=== PATIENT | female | born 1945 | race Caucasian/White ===

== ENCOUNTER 2023-03-18 00:48 | Outpatient (CLI) | payer MEDICARE, BC, SELFPAY ==
--- NOTE | 2023-03-18 07:45 | DI.US_ITS ---
Exam(s) US NEEDLE LOCAL OTHER WO RAD EXAM: US NEEDLE LOCAL OTHER WO RAD CLINICAL HISTORY: Nodule x4,ULTRASOUND GUIDED BX, E04.2,MULTINODULAR THYROID. COMPARISON: US US THYROID/NECK/HEAD from 12/02/2022 TECHNIQUE: Ultrasound was provided for Dr. Noel for guidance with performing right thyroid nodule FNA. Please see procedure note for details. DATA REPOSITORY:
--- NOTE | 2023-03-18 11:50 | PAPNONF_PTH ---
PATIENT: Yenifer Medley LOC: DI U#:[id number] AGE/SX: 78/F ROOM: RE03/18/[address]: Joe Noel MD : [id number] BED: DIS: 03/18/2023 SPEC #: [id number] RECD: 03/18/23 12:44 STATUS: JEREL REShirin #: [id number] BOGDAN: 03/18/23 11:[address]: Joe Noel DEPT: [facility] Cytology RECD BY: Chelo Gandhi ENTERED: 03/18/23 12:45 SP TYPE: SERENA PICKERING DR: Juanita Mayers Tissues: 1 - BODY FLUID CYTO(NOT S/U/N/EM)[facility] 2 - BODY FLUID CYTO(NOT S/U/N/EM)[facility] Procedures: BODY FLUID CYTO(NOT SPU/UR/NIP/ENDOM)[facility] Comments: [id number] (PATH FNA CONSULT) (REFRIGERATED)
--- NOTE | 2023-03-18 12:06 | OPPNE_ITS ---
Date of service: 03/18/23 Time of Service: 12:06 Procedure Note Date of procedure: 03/18/23 Procedure: Ultrasound-guided FNA, right thyroid nodules x2, pathology present Surgeon/Proceduralist/Physician: Joe Noel Procedure Diagnosis: Multinodular thyroid Procedure Indications: The patient has a multinodular thyroid with previous ultrasound indicating 2 left-sided thyroid nodules measuring just over criteria for biopsy and 2 right- sided thyroid nodules which met criteria for biopsy. Options were explained to the patient regarding further management. She stopped her Plavix and aspirin as directed last Friday. She would like to proceed with FNA. Prior to performing the FNA, repeat ultrasound was performed revealing that one of the left-sided thyroid nodules was now subcentimeter and the other area of concern did not appear to be nodular but rather an area of heterogeneity within the left thyroid. We discussed FNA of this area versus waiting. After discussion she wished watchful waiting on the left and FNA of the right thyroid nodules. Consent was obtained and the below was then performed. Procedure Description: The patient was positioned in supine position and prepped and draped in appropriate fashion. Ultrasound was used to locate and localize each thyroid nodule. The skin overlying the thyroid nodules was anesthetized with 1% lidocaine with 1/100,000 epinephrine. Multiple passes were made through 1 thyroid nodule and then the other keeping the specimen separate, with pathology confirming adequate cellularity on each. Additional samples were obtained for possible Afirma testing. This was done on each nodule as well. Following this, after ensuring adequate hemostasis, sterile dressing was applied to the area and the patient was allowed to sit and then stand. Her vital signs remained stable. A total of 2 nodules were biopsied. She was given instructions to remove the bandage tonight and not replace it. She will also resume her Plavix tonight as well as her aspirin. She will call me if she does not hear from me with regard to pathology results within 1 week. She will call with any signs of infection or any other concerns. She had no further questions. She is comfortable with this plan.
== END 2023-03-18 01:08 ==
LOC: DI 00:49
PROVIDERS: PCP Family Medicine; Visit Provider Otolaryngology
DX: E04.2 Nontoxic multinodular goiter (principal)
CPT/HCPCS: 76942; 88104

== ENCOUNTER → 2024-03-22 02:34 | Outpatient (CLI) | payer MEDICARE, BC, SELFPAY ==
--- NOTE | 2024-03-22 07:30 | DI.US_ITS ---
Exam(s) US THYROID EXAM: US THYROID CLINICAL HISTORY: Multinodular thyroid, assess for change,e04.2. TECHNIQUE: Ultrasound thyroid performed using standard protocol. COMPARISON: US US THYROID/NECK/HEAD from 12/02/2022 This patient underwent ultrasound-guided FNA of right thyroid nodule at this institution on . FINDINGS: Bilateral nodules again noted. RIGHT THYROID LOBE: Measures 2.5 cm AP x 2.6 cm wide x 4.9 cm craniocaudal Two dominant nodules in the right lobe are again graded. Nodule #1. This is the more inferior of the 2 nodules and is nodule which underwent ultrasound-guided FNA on 03/18/2023. Size: This nodule measures 2.7 x 1.1 x 1.8 cm Composition: Solid-2 points Echogenicity: Isoechoic-1 point Shape: Wider than taller-0 points Margin: Smooth- 0 points Echogenic Foci: Comet tail-0 points Total Points for this nodule: 3 ACR Ti-Rads Category: TR3 This TR 3 level nodule has already undergone ultrasound-guided FNA on 03/18/2023. Nodule #2 this is located above the other nodule Size: Measures 2.6 x 2.2 x 1.2 cm Composition: Mixed cystic-solid- 1 point Echogenicity: Solid components of this nodule are isoechoic-1 point Shape: Wider than taller- 0 points Margin: Smooth-0 points Echogenic Foci: None-0 points Total points for this nodule: 2 ACR Ti-Rads Category: TR2 This nodule can be followed. ISTHMUS: Normal thickness. There are no nodules in the isthmus. LEFT THYROID LOBE: Measures 1.9 cm AP x 1.9 wide x 5.6 cm craniocaudal Contains 2 dominant nodules Nodule #1. This is midpole level nodule Size: Measures 1.9 x 1.0 x 1.5 cm Composition: Mixed isuil-ecctlp-9 points Echogenicity: Isoechoic-1 points Shape: Wider than taller-0 points Margin: Smooth-0 points Echogenic Foci: None-0 points Total points for this nodule: 2 ACR Ti-Rads Category: 2 This nodule can be followed Nodule #2 . This nodule is lower down in the left lobe. Size: Measures 1.7 x 0.9 x 1.3 cm Composition: Solid-2 points Echogenicity: Mildly hypoechoic-2 points Shape: Wider than taller-0 points Margin: Smooth-0 points Echogenic Foci: None-0 points Total Points for this nodule: 4 ACR Ti-Rads Category: 4 This TR 4 level nodule should undergo ultrasound FNA as it measures greater than than 1.5 cm LYMPH NODES: There is no significant adenopathy. IMPRESSION: 1. Bilateral nodules as above. On the present study 1 nodule qualifies for ultrasound-guided FNA. Thi s is in the inferior aspect of the left thyroid lobe. It appears of slightly increased in size from t he prior outside ultrasound examination of November 2022. 2. There is no significant lymphadenopathy. DATA REPOSITORY:
== END ==
PROVIDERS: PCP Family Medicine; Visit Provider Otolaryngology
DX: E04.2 Nontoxic multinodular goiter (principal)
CPT/HCPCS: 76536

== ENCOUNTER 2025-04-20 02:54 | Outpatient (CLI) | payer MEDICARE, BC, SELFPAY ==
--- NOTE | 2025-04-20 07:00 | DI.US_ITS ---
Exam(s) US THYROID EXAM: US THYROID CLINICAL HISTORY: Assess for change, MULTINODULAR THYROID, E04.2 NONTOXIC. TECHNIQUE: Ultrasound thyroid performed using standard protocol. COMPARISON: US US THYROID from 03/22/2024 FINDINGS: ISTHMUS: 3 mm RIGHT LOBE: Size: 5.0 x 2.6 x 2.8 cm Echogenicity: Heterogeneous Vascularity: Normal. Nodules: Nodule 1. Upper pole. 2.4 x 1.2 x 2.7 cm, stable size. Mixed solid and cystic, isoechoic, wider than tall, smoothly marginated without echogenic foci, TR 2. Nodule 2. Midpole. Solid, isoechoic, wider than tall, smoothly marginated, comet tail echogenic foci. TR 3. LEFT LOBE: Size: 4.7 x 2.3 x 1.7 cm Echogenicity: Heterogeneous Vascularity: Normal. Nodules: Nodule 3 mid pole. 1.9 x 0.9 x 1.1 cm, stable size. Mixed echogenicity, isoechoic, wider than tall, smoothly marginated and without echogenic foci, TR 2. Nodule 4 inferomedial lower pole. 1.5 x 0.9 x 1.3 cm, stable size. Solid, isoechoic, wider than tall, smoothly marginated, without echogenic foci, TR 3. OTHER FINDINGS: No adenopathy IMPRESSION: Stable TR 2 and TR 3 thyroid nodules. DATA REPOSITORY:
== END 2025-04-20 03:14 ==
PROVIDERS: PCP Family Medicine; Visit Provider Otolaryngology
DX: E04.2 Nontoxic multinodular goiter (principal)
CPT/HCPCS: 76536